=== PATIENT | female | born 1960 | race African-American/Black ===

== ENCOUNTER 2017-02-17 14:34 | Emergency (ER) | payer SELFPAY ==
[~2017-02-17] VITALS: Ht 157.5 cm; Wt 77.2 kg
[~2017-02-17 14:34] MED LIST: ASPI81CH3; FISH100020 PO; IBUP-238 PO; METHI10 PO; PROP10TA6 PO; TAB-TAB PO
[2017-02-17 14:38] VITALS: BP 128/70; PULSE 120; RESP 16; TEMP 103; O2SAT 95
[2017-02-17] MEDS ORDERED: SODIUM CHLOR 0.9% 1000 ML INJ 1,000 ML IV SCH (14:55)
[2017-02-17] MEDS ORDERED: diphenhydrAMINE HCL 50 MG/ML VIAL IVP ONE (15:00)
[2017-02-17] MEDS ORDERED: PROCHLORPERAZINE INJ 10 MG/2 ML VIAL IVP ONE (15:00)
[2017-02-17] MEDS ORDERED: SODIUM CHLORIDE 0.9% FLUSH 10 ML FLUSH IV FLUSH PRN (15:00)
[2017-02-17] MEDS ORDERED: ACETAMINOPHEN 325 MG TAB PO ONE (15:00)
--- NOTE | 2017-02-17 15:02 | PD ---
HPI Chief Complaint: Headache Time Seen by Provider: 14:48 Travel History International Travel<30 days: No Contact w/Intl Traveler<30days: No Traveled to known affect area: No History of Present Illness HPI 56-year-old female presents emergency Department with complaint of headache, body aches, nasal congestion, occasional cough 3 days. Denies sore throat, ear pain. Denies chest pain, shortness of breath, abdominal pain. Denies dysuria, urinary frequency. Denies nausea, vomiting. Didn't know she had a fever until she arrived at the ER. Rates her 9/10 and is frontal. Describes it as an ache. Has not taken any medications or tried any treatments to alleviate her symptoms. No known aggravating or relieving factors. No one else with similar symptoms. Has received the influenza vaccine this year. Primary care provider is Dr. Luna. No known allergies. Denies significant past medical history. PFSH Past Medical History Hx Anticoagulant Therapy: No Cardiovascular Problems: No Chemotherapy: No Cerebrovascular Accident: No Diabetes: No Diminished Hearing: No Respiratory: No Ovarian Cysts: Yes Past Surgical History Hysterectomy: Yes Social History Alcohol Use: No Tobacco Use: No Substance Use: No Allergies-Medications (Allergen,Severity, Reaction): Coded Allergies: No Known Allergies (Verified Adverse Reaction, Unknown, 02/17/17) Reported Meds & Prescriptions Reported Meds & Active Scripts Active Tamiflu (Oseltamivir Phosphate) 75 Mg Cap 75 Mg PO BID 5 Days Reported Vitamin D-1000 (Cholecalciferol) 1,000 Unit Tab 1,000 Units PO DAILY Fish Oil 1,000 mg Softgel ([place]-3/Dha/Epa/Fish Oil) 1,000 Mg (120 Mg-180 Mg) Capsule Aspirin 81 Mg Chew 81 Mg CHEW ONCE Review of Systems Except as stated in HPI: all other systems reviewed are Neg Physical Exam Narrative GENERAL: Well-nourished, well-developed black female patient, in no acute distress; febrile 103.0, nontoxic-appearing SKIN: Warm and dry. No rash. HEAD: Atraumatic. Normocephalic. EYES: Pupils equal and round. No scleral icterus. No injection or drainage. ENT: Mucosa pink and moist. No erythema or exudates. No uvular edema. No uvular , palatal, or tonsillar deviation. Airway patent. EARS: Bilateral pinnae and external canals appear within normal limits. Bilateral tympanic membranes without erythema, dullness or perforation. NECK: Trachea midline. No lymphadenopathy. CARDIOVASCULAR: Tachycardic rate and [id number]. No murmur appreciated. RESPIRATORY: No accessory muscle use. Clear to auscultation. Breath sounds equal bilaterally. No retractions or tachypnea. GASTROINTESTINAL: Abdomen soft, non-tender, nondistended. Hepatic and splenic margins not palpable. Bowel sounds are active 4 quadrants. MUSCULOSKELETAL: No obvious deformities. No clubbing. No cyanosis. No edema. NEUROLOGICAL: Awake and alert. Oriented 3. No obvious cranial nerve deficits. Motor grossly within normal limits. Normal speech. Moves all extremities. 5/5 strength to all extremities. PSYCHIATRIC: Appropriate mood and affect; insight and judgment normal. Data Data Last Documented VS Vital Signs Date Time Temp Pulse Resp B/P (MAP) Pulse Ox O2 Delivery O2 Flow Rate FiO2 02/17/17 16:29 100.6 111 18 96 Room Air Orders Orders Complete Blood Count With Diff (02/17/17 14:55) Comprehensive Metabolic Panel (02/17/17 14:55) Urinalysis - C+S If Indicated (02/17/17 14:55) Iv Access Insert/Monitor (02/17/17 14:55) Ecg Monitoring (02/17/17 14:55) Oximetry (02/17/17 14:55) Sodium Chlor 0.9% 1000 Ml Inj (Ns 1000 M (02/17/17 14:55) Sodium Chloride 0.9% Flush (Ns Flush) (02/17/17 15:00) Prochlorperazine Inj (Compazine Inj) (02/17/17 15:00) Diphenhydramine Inj (Benadryl Inj) (02/17/17 15:00) Acetaminophen (Tylenol) (02/17/17 15:00) Sepsis Workup Initiated (02/17/17 ) Lactic Acid Sepsis Protocol (02/17/17 14:55) Blood Culture (02/17/17 14:55) Chest, Single Ap (02/17/17 14:55) Blood Glucose (02/17/17 14:55) Influenzae A/B Antigen (02/17/17 14:55) Ketorolac Inj (Toradol Inj) (02/17/17 16:15) Ed Discharge Order (02/17/17 16:50) Labs Laboratory Tests Test 02/17/17 15:10 02/17/17 16:20 White Blood Count 6.5 TH/MM3 Red Blood Count 4.63 MIL/MM3 Hemoglobin 13.2 GM/DL Hematocrit 39.4 % Mean Corpuscular Volume 85.1 FL Mean Corpuscular Hemoglobin 28.5 PG Mean Corpuscular Hemoglobin Concent 33.5 % Red Cell Distribution Width 13.9 % Platelet Count 215 TH/MM3 Mean Platelet Volume 9.6 FL Neutrophils (%) (Auto) 74.4 % Lymphocytes (%) (Auto) 8.4 % Monocytes (%) (Auto) 14.2 % Eosinophils (%) (Auto) 2.2 % Basophils (%) (Auto) 0.8 % Neutrophils # (Auto) 4.8 TH/MM3 Lymphocytes # (Auto) 0.5 TH/MM3 Monocytes # (Auto) 0.9 TH/MM3 Eosinophils # (Auto) 0.1 TH/MM3 Basophils # (Auto) 0.1 TH/MM3 CBC Comment DIFF FINAL Differential Comment Blood Urea Nitrogen 10 MG/DL Creatinine 0.80 MG/DL Random Glucose 105 MG/DL Total Protein 7.9 GM/DL Albumin 3.9 GM/DL Calcium Level 9.1 MG/DL Alkaline Phosphatase 80 U/L Aspartate Amino Transf (AST/SGOT) 17 U/L Alanine Aminotransferase (ALT/SGPT) 18 U/L Total Bilirubin 0.4 MG/DL Sodium Level 138 MEQ/L Potassium Level 4.1 MEQ/L Chloride Level 104 MEQ/L Carbon Dioxide Level 29.3 MEQ/L Anion Gap 5 MEQ/L Estimat Glomerular Filtration Rate 89 ML/MIN Lactic Acid Level 1.0 mmol/L Urine Color LIGHT-YELLOW Urine Turbidity CLEAR Urine pH 7.0 Urine Specific [place] 1.002 Urine Protein NEG mg/dL Urine Glucose (UA) NEG mg/dL Urine Ketones NEG mg/dL Urine Occult Blood NEG Urine Nitrite NEG Urine Bilirubin NEG Urine Urobilinogen LESS THAN 2.0 MG/DL Urine Leukocyte Esterase NEG Urine RBC LESS THAN 1 /hpf Urine WBC LESS THAN 1 /hpf Urine Squamous Epithelial Cells <1 /hpf MDM Medical Decision Making Medical Screen Exam Complete: Yes Emergency Medical Condition: Yes Medical Record Reviewed: Yes Differential Diagnosis Influenza, sepsis, viral illness Narrative Course 56-year-old female with fever 103.0 and heart rate of 120. She is complaining of headache, body aches, nasal congestion 3 days. She is nontoxic-appearing. I discussed my plan of care with Dr. Juan hughes, and she agrees. Patient placed on cardiopulmonary monitor. Sepsis protocol initiated. IV, normal saline bolus, CBC, CMP, lactic acid, blood cultures urinalysis, chest x-ray, influenza, Tylenol, Benadryl, Compazine ordered. 1557: Influenza A+. CBC, CMP unremarkable. Lactic acid 1.0. 1637: Chest x-ray concludes: Chest X-Ray 02/17/17 1455 Signed Impressions: Service Date/Time: Friday, February 17, 2017 15:23 - CONCLUSION: No acute cardiopulmonary disease identified. Moise Dave MD Discussed all results with the patient. 1655: Patient is resting comfortably in the room. Denies headache at this time. Discussed viral illness and symptom treatment. Tamiflu prescribed for home. Instructed patient to follow up with primary care provider. Patient verbalizes understanding and agreement with treatment plan. Patient is medically cleared and stable for discharge. Discussed reasons to return to the emergency department. Patient agrees with treatment plan. The patients vital signs are stable and the patient is stable for outpatient follow-up and treatment. Patient discharged home, stable and in no acute distress. Diagnosis Primary Impression: Influenza A Referrals: [facility] Primary Care Physician Patient Instructions: General Instructions, Influenza (ED) Additional Instructions: Ibuprofen or Tylenol as directed and as needed to reduce fever; may alternate ibuprofen and Tylenol as needed every 3 hours to minimize fever [id number] cold/flu medications as directed and as needed for symptom management Get plenty of sleep/rest Drink plenty of fluids to prevent dehydration; such as Gatorade, Powerade, Pedialyte [place] diet to encourage nutrition such as crackers, fruit, applesauce, toast, soup etc. Use an air humidifier/turn off ceiling fans Follow-up with your primary care provider Return immediately to the emergency department with worsening of symptoms Med/Other Pt SpecificInfo: Prescription(s) given Scripts Oseltamivir (Tamiflu) 75 Mg Cap 75 MG PO BID for Mgmt Viral Infection for 5 Days, #10 CAP 0 Refills Prov: Griselda Box 02/17/17 Disposition: 01 DISCHARGE HOME Condition: Stable Griselda Box Feb 17, 2017 15:02
[2017-02-17 15:05] VITALS: BP 133/76; PULSE 108; RESP 18; TEMP 102.4; O2SAT 96
[2017-02-17 15:33] LABS: AUTOMATED NEUTROPHIL # 4.8 TH/MM3 (1.8-7.7); BASOPHIL # 0.1 TH/MM3 (0-0.2); BASOPHIL % 0.8 % (0.0-2.0); EOSINOPHIL # 0.1 TH/MM3 (0-0.4); EOSINOPHIL % 2.2 % (0.0-4.0); HEMATOCRIT 39.4 % (35.0-46.0); HEMOGLOBIN 13.2 GM/DL (11.6-15.3); LYMPH % 8.4 % (9.0-44.0); LYMPHOCYTE # 0.5 TH/MM3 (1.0-4.8); MEAN CELL VOLUME 85.1 FL (80.0-100.0); MEAN CORPUSCULAR HEMOGLOBIN 28.5 PG (27.0-34.0); MEAN CORPUSCULAR HGB CONC 33.5 % (32.0-36.0); MEAN PLATELET VOLUME 9.6 FL (7.0-11.0); MONO % 14.2 % (0.0-8.0); MONOCYTE # 0.9 TH/MM3 (0-0.9); NEUT % 74.4 % (16.0-70.0); PLATELET COUNT 215 TH/MM3 (150-450); RED BLOOD COUNT 4.63 MIL/MM3 (4.00-5.30); RED CELL DISTRIBUTION WIDTH 13.9 % (11.6-17.2); WHITE BLOOD COUNT 6.5 TH/MM3 (4.0-11.0)
[2017-02-17 15:48] LABS: ALBUMIN 3.9 GM/DL (3.4-5.0); ALT (GPT) 18 U/L (10-53); AST (GOT) 17 U/L (15-37); BICARBONATE 29.3 MEQ/L (21.0-32.0); BLOOD UREA NITROGEN 10 MG/DL (7-18); CALCIUM 9.1 MG/DL (8.5-10.1); CHLORIDE 104 MEQ/L (98-107); GLOMERULAR FILTRATION RATE 89 ML/MIN (>89); GLUCOSE,RANDOM 105 MG/DL (74-106); SODIUM (NA) 138 MEQ/L (136-145)
[2017-02-17 15:51] LABS: ALKALINE PHOSPHATASE 80 U/L (45-117); TOTAL BILIRUBIN ADULT 0.4 MG/DL (0.2-1.0); TOTAL PROTEIN 7.9 GM/DL (6.4-8.2)
[2017-02-17] MEDS ORDERED: OSEL75 PO ×2 (15:59→16:00)
--- NOTE | 2017-02-17 16:14 | RADRPT ---
EXAM DATE/TIME: 02/17/2017 15:23 [place] COMPARISON: CHEST SINGLE AP, November 13, 2014, 19:52. INDICATIONS : Whole body ache, headache, lightheaded and dizziness. MEDICAL HISTORY : None. SURGICAL HISTORY : None. ENCOUNTER: Initial ACUITY: 3 days PAIN SCORE: 2/10 LOCATION: Bilateral chest FINDINGS: Single AP view of the chest. The lungs are clear. Cardiomediastinal silhouette within normal limits. No evidence of pleural effusion or pneumothorax. CONCLUSION: No acute cardiopulmonary disease identified. Moise Dave MD on February 17, 2017 at 16:12 Board Certified Radiologist. This report was verified electronically.
[2017-02-17] MEDS ORDERED: KETOROLAC TROMETHAMINE 30 MG/ML (IVP) VIAL IV PUSH ONE (16:15)
[2017-02-17] MEDS ORDERED: VITA1000 PO (16:27)
[2017-02-17] MEDS ORDERED: ASPI-516 CHEW (16:27)
[2017-02-17] MEDS ORDERED: OMEG100046 (16:27)
[2017-02-17 16:29] VITALS: PULSE 111; RESP 18; TEMP 100.6; O2SAT 96
[2017-02-17 16:36] LABS: BILIRUBIN, URINE NEG (NEG); BLOOD, URINE NEG (NEG); GLUCOSE,URINE NEG (NEG); KETONE, URINE NEG (NEG); NITRITE,URINE NEG (NEG); SQUAMOUS EPITHELIAL CELL URINE <1 /hpf (0-5); URINE COLOR LIGHT-YELLOW (YELLW/STRAW); URINE LEUKOCYTE ESTERASE NEG (NEG)
== END 2017-02-17 17:30 | disposition home or self-care (01) ==
LOC: NEPC 14:34
DX: J09.X2 Influenza due to identified novel influenza A virus with other respiratory manifestations (principal)
CPT/HCPCS: 71010; 80053; 81001; 83605; 85025; 87040; 87804; 96361; 96374; 96375; 99284; J0780; J1200; J1885; J7030